=== PATIENT | female | born 1965 | race African-American/Black ===

== ENCOUNTER → 2020-05-10 | Outpatient (REF) | payer OTHER ==
[2020-05-10 13:17] LABS: BASO % 0.4 % (0.0-1.0); EOS % 0.6 % (0.0-3.0); HEMATOCRIT 44.5 % (36.0-47.0); HEMOGLOBIN 13.9 g/dl (12.0-15.5); MEAN CORPUSCULAR HEMOGLOBIN 25.7 pg (27.0-33.0); MEAN CORPUSCULAR HGB CONC 31.2 g/dl (32.0-36.5); MEAN CORPUSCULAR VOLUME 82.4 fl (80.0-96.0); MONO # 0.3 10^3/uL (0.0-0.8); MONO % 6.9 % (0.0-5.0); NEUTROPHILS # 2.5 10^3/uL (1.5-8.5); NEUTROPHILS % 50.7 % (36.0-66.0); PLATELET COUNT, AUTOMATED 277 10^3/uL (150-450)
[2020-05-10 13:28] LABS: ALBUMIN 3.8 GM/DL (3.2-5.2); ALT/SGPT 41 U/L (12-78); BILIRUBIN,TOTAL 0.4 MG/DL (0.2-1.0); BLOOD UREA NITROGEN 21 MG/DL (7-18); CALCIUM LEVEL 9.8 MG/DL (8.5-10.1); CARBON DIOXIDE LEVEL 32 MEQ/L (21-32); CHLORIDE LEVEL 104 MEQ/L (98-107); CHOLESTEROL LEVEL 187 MG/DL (<200); CHOLESTEROL RISK RATIO 2.077 (<5); CREATININE FOR GFR 1.07 MG/DL (0.55-1.30); GLOMERULAR FILTRATION RATE > 60.0 (>51); GLUCOSE, FASTING 142 MG/DL (70-100); HDL CHOLESTEROL 90 MG/DL (>40); LDL CHOLESTEROL 79 MG/DL (<100); NON-HDL-C 97 MG/DL; POTASSIUM SERUM 3.6 MEQ/L (3.5-5.1); SODIUM LEVEL 140 MEQ/L (136-145); TOTAL 25(OH) VITAMIN D 13.1 NG/ML (30.0-100.0); TOTAL PROTEIN 7.4 GM/DL (6.4-8.2); TRIGLYCERIDES LEVEL 88 MG/DL (<150)
[2020-05-10 13:38] LABS: HEMOGLOBIN A1c 6.9 %
[2020-05-10 14:49] LABS: MALB URINE SIEMENS 62.1 MG/L; MAU/CREAT RATIO 45.3 MCG/MG (0.0-30.0)
== END ==
LOC: M LAB REF 12:19
PROVIDERS: ATTEND Physician Assistant
DX: I51.7 Cardiomegaly (principal); E78.5 Hyperlipidemia, unspecified; Z86.15 Personal history of latent tuberculosis infection; Z68.33 Body mass index [BMI] 33.0-33.9, adult; E11.9 Type 2 diabetes mellitus without complications; I10 Essential (primary) hypertension; E66.09 Other obesity due to excess calories

== ENCOUNTER → 2020-05-13 | Outpatient (REF) | payer OTHER | LOC: M LAB REF 12:45 | PROVIDERS: ATTEND Physician Assistant | DX: I51.7 Cardiomegaly (principal); E78.5 Hyperlipidemia, unspecified; Z86.15 Personal history of latent tuberculosis infection; Z68.33 Body mass index [BMI] 33.0-33.9, adult; E66.09 Other obesity due to excess calories; E11.9 Type 2 diabetes mellitus without complications; I10 Essential (primary) hypertension ==

== ENCOUNTER → 2020-06-03 | Outpatient (REF) | payer OTHER, MEDICAID ==
[2020-06-03 16:56] LABS: BLOOD UREA NITROGEN 19 MG/DL (7-18); CARBON DIOXIDE LEVEL 34 MEQ/L (21-32); CHLORIDE LEVEL 101 MEQ/L (98-107); CREATININE FOR GFR 0.95 MG/DL (0.55-1.30); GLOMERULAR FILTRATION RATE > 60.0 (>51); GLUCOSE, FASTING 128 MG/DL (70-100); POTASSIUM SERUM 3.1 MEQ/L (3.5-5.1); SODIUM LEVEL 140 MEQ/L (136-145)
[2020-06-03 16:57] LABS: CALCIUM LEVEL 9.9 MG/DL (8.5-10.1)
== END ==
LOC: M LAB REF 16:01
PROVIDERS: ATTEND Physician Assistant
DX: I10 Essential (primary) hypertension (principal)

== ENCOUNTER → 2020-06-17 | Outpatient (REF) | payer OTHER, MEDICAID | LOC: M LAB REF 16:19 | PROVIDERS: ATTEND Physician Assistant | DX: E87.6 Hypokalemia (principal) ==

== ENCOUNTER → 2020-06-24 | Outpatient (REF) | payer OTHER, MEDICAID | LOC: M LAB REF 17:45 | PROVIDERS: ATTEND Nurse Practitioner Family | DX: N76.0 Acute vaginitis (principal) ==

== ENCOUNTER → 2020-07-16 | Outpatient (CLI) | payer OTHER, MEDICAID ==
[~2020-07-16] MED LIST: CETI-24 PO; CHLO125TA PO; D 50CAP2 PO
== END ==
LOC: M LABSMTC 11:19
PROVIDERS: ATTEND Anesthesiology
DX: Z01.812 Encounter for preprocedural laboratory examination (principal); Z20.828 Contact with and (suspected) exposure to other viral communicable diseases

== ENCOUNTER 2020-07-21 07:03 | Day surgery (SDC) | payer OTHER ==
[~2020-07-21] VITALS: Ht 157.5 cm; Wt 85.3 kg
[2020-07-21] MEDS ORDERED: LIDOCAINE 2% 100MG/5ML SDV (FOR ANES.) As Ordered ONE (07:57)
[2020-07-21] MEDS ORDERED: NS 1,000 ML IV ONE (08:00)
[2020-07-21] MEDS ORDERED: propofoL 200 MG/20 ML VIAL As Ordered ONE ×2 (08:27→08:28)
--- NOTE | 2020-07-21 08:39 | ROOR ---
Patient Name: Meena Vo Procedure Date: 07/21/2020 8:16 AM Date of : 1965 Age: 55 Room: [facility] Gender: Female Note Status: Finalized Procedure: Colonoscopy Indications: Screening for colorectal malignant neoplasm Providers: DO Helena Ko MD: MILIND Donovan Requesting Provider: Medicines: Propofol per Anesthesia Complications: No immediate complications. Procedure: Pre-Anesthesia Assessment: - Prior to the procedure, a History and Physical was performed, and patient medications and allergies were reviewed. The patient is competent. The risks and benefits of the procedure and the sedation options and risks were discussed with the patient. All questions were answered and informed consent was obtained. Patient identification and proposed procedure were verified by the physician, the nurse, the clinical documentation consultant and the pharmacy technician infusion in the endoscopy suite. Mental Status Examination: alert and oriented. Airway Examination: normal oropharyngeal airway and neck mobility. Respiratory Examination: clear to auscultation. CV Examination: normal. Prophylactic Antibiotics: The patient does not require prophylactic antibiotics. Prior Anticoagulants: The patient has taken no previous anticoagulant or antiplatelet agents. ASA Grade Assessment: II - A patient with mild systemic disease. After reviewing the risks and benefits, the patient was deemed in satisfactory condition to undergo the procedure. The anesthesia plan was to use monitored anesthesia care (MAC). Immediately prior to administration of medications, the patient was re-assessed for adequacy to receive sedatives. The heart rate, respiratory rate, oxygen saturations, blood pressure, adequacy of pulmonary ventilation, and response to care were monitored throughout the procedure. The physical status of the patient was re-assessed after the procedure. The Colonoscope was introduced through the anus and advanced to the terminal ileum, with identification of the appendiceal orifice and IC valve. The colonoscopy was performed without difficulty. The patient tolerated the procedure well. Findings: A few small-mouthed diverticula were found in the sigmoid colon and ascending colon. Non-bleeding internal hemorrhoids were found during retroflexion. The hemorrhoids were mild and Grade I (internal hemorrhoids that do not prolapse). The exam was otherwise without abnormality. Impression: - Diverticulosis in the sigmoid colon and in the ascending colon. - Non-bleeding internal hemorrhoids. - The examination was otherwise normal. - No specimens collected. Recommendation: - Patient has a contact number available for emergencies. The signs and symptoms of potential delayed complications were discussed with the patient. Return to normal activities tomorrow. Written discharge instructions were provided to the patient. - Repeat colonoscopy in 5-10 years for screening purposes. - Return to my office PRN. Procedure Code(s): --- Professional --- G0121, Colorectal cancer screening; colonoscopy on individual not meeting criteria for high risk Diagnosis Code(s): --- Professional --- Z12.11, Encounter for screening for malignant neoplasm of colon K64.0, First degree hemorrhoids K57.30, Diverticulosis of large intestine without perforation or abscess without bleeding CPT copyright 2019 [employer]. All rights reserved. The codes documented in this report are preliminary and upon computer equipment repairer review may be revised to meet current compliance requirements. Cliff Baptiste DO 07/21/2020 8:39:26 AM Electronically signed by Cliff Baptiste DO Number of Addenda: 0 Note Initiated On: 07/21/2020 8:16 AM Estimated Blood Loss: Estimated blood loss: none.
[2020-07-21 09:00] VITALS: BP 168/95
== END 2020-07-21 09:08 | disposition home or self-care (01) ==
LOC: M OPP 07:03
PROVIDERS: ATTEND Surgery
DX: Z12.11 Encounter for screening for malignant neoplasm of colon (principal); K57.30 Diverticulosis of large intestine without perforation or abscess without bleeding; K64.0 First degree hemorrhoids; Z79.899 Other long term (current) drug therapy

== ENCOUNTER 2020-11-30 18:16 | Emergency (ER) | payer MEDICAID, OTHER ==
[~2020-11-30] VITALS: Ht 157.5 cm; Wt 79.7 kg
[~2020-11-30 18:16] MED LIST changes: -AMLO1TAB25; -GLIP5TAB8 PO; -METF500T13 PO
[2020-11-30 18:17] VITALS: BP 141/92
[2020-11-30] MEDS ORDERED: AMLO1TAB25 (18:30)
[2020-11-30] MEDS ORDERED: NS 1,000 ML IV ONE ×2 (19:40→22:10)
[2020-11-30 20:26] LABS: VENOUS BASE EXCESS 6.6 (-2.0-2.0); VENOUS HCO3 32.8 MEQ/L (23.0-27.0); VENOUS O2 SATURATION 49.4 % (60.0-80.0); VENOUS PARTIAL PRESSURE CO2 52.1 mmHg (38.0-50.0); VENOUS PARTIAL PRESSURE O2 26.4 mmHg (30.0-50.0); VENOUS PH 7.417 UNITS (7.330-7.430); VENOUS STANDARD HCO3 28.9 MEQ/L; VENOUS TOTAL CO2 34.4 MEQ/L (24.0-28.0)
[2020-11-30 20:36] LABS: BASO % 0.4 % (0.0-1.0); EOS % 0.4 % (0.0-3.0); HEMOGLOBIN 15.8 g/dl (12.0-15.5); LYMPH % 38.9 % (24.0-44.0); MEAN CORPUSCULAR HEMOGLOBIN 25.4 pg (27.0-33.0); MEAN CORPUSCULAR HGB CONC 32.2 g/dl (32.0-36.5); MEAN CORPUSCULAR VOLUME 78.9 fl (80.0-96.0); MONO # 0.4 10^3/uL (0.0-0.8); MONO % 7.6 % (2.0-8.0); NEUTROPHILS # 2.6 10^3/uL (1.5-8.5); NEUTROPHILS % 52.5 % (36.0-66.0); PLATELET COUNT, AUTOMATED 339 10^3/uL (150-450); RED BLOOD COUNT 6.21 10^6/uL (4.00-5.40)
[2020-11-30 21:06] LABS: OSMOLALITY SERUM 293 MOSM/KG (275-295)
[2020-11-30 21:17] LABS: ACETONE/KETONE 3.24 MG/DL (<2.81); ALBUMIN 4.1 GM/DL (3.2-5.2); ALT/SGPT 43 U/L (12-78); BILIRUBIN,DIRECT 0.1 MG/DL (0.0-0.2); BILIRUBIN,TOTAL 0.4 MG/DL (0.2-1.0); BLOOD UREA NITROGEN 20 MG/DL (7-18); CALCIUM LEVEL 10.5 MG/DL (8.5-10.1); CARBON DIOXIDE LEVEL 33 MEQ/L (21-32); CHLORIDE LEVEL 91 MEQ/L (98-107); CREATININE FOR GFR 1.13 MG/DL (0.55-1.30); GLOMERULAR FILTRATION RATE > 60.0 (>51); GLUCOSE, FASTING 400 MG/DL (70-100); LIPASE 283 U/L (73-393); POTASSIUM SERUM 3.4 MEQ/L (3.5-5.1); SODIUM LEVEL 130 MEQ/L (136-145); TOTAL PROTEIN 7.8 GM/DL (6.4-8.2)
[2020-11-30 22:17] LABS: HEMOGLOBIN A1c > 14.0 %
[2020-12-01] MEDS ORDERED: METF500T13 PO (00:14)
[2020-12-01] MEDS ORDERED: GLIP5TAB8 PO (00:14)
[2020-12-01] MEDS ORDERED: glipiZIDE (GLUCOTROL) 5 MG TAB PO ONE (00:15)
[2020-12-01] MEDS ORDERED: metFORMIN (GLUCOPHAGE) 500MG TAB PO ONE (00:15)
--- NOTE | 2020-12-02 12:38 | ECGEPIP ---
[facility] - ED Test Date: 2020-11-30 Pat Name: NEFTALY LEON Department: Room: - Gender: Female Podiatry Assistant: er : 1965 Requested By: LUAN Marino Order Number: [id number] Reading MD: Belinda Leyva Measurements Intervals Severance Rate: 75 P: 48 MS: 176 QRS: 7 QRSD: 76 T: 103 QT: 404 QTc: 451 Interpretive Statements Normal sinus rhythm Possible Left atrial enlargement Inferior infarct , age undetermined Cannot rule out Anterior infarct , age undetermined ST & T wave abnormality, consider ischemia no prior Electronically Signed on 12-02-2020 12:37:40 EDT by Belinda Leyva
== END 2020-12-01 00:32 | disposition home or self-care (01) ==
LOC: M ED 18:16
DX: E11.65 Type 2 diabetes mellitus with hyperglycemia (principal); Z79.899 Other long term (current) drug therapy

== ENCOUNTER → 2020-11-30 | Outpatient (CLI) | payer OTHER ==
[~2020-11-30] MED LIST changes: +AMLO1TAB25; +GLIP5TAB8 PO; +METF500T13 PO
[2020-11-30 16:24] LABS: BASO % 0.2 % (0.0-1.0); EOS % 0.2 % (0.0-3.0); HEMATOCRIT 48.5 % (36.0-47.0); HEMOGLOBIN 15.5 g/dl (12.0-15.5); LYMPH # 1.2 10^3/uL (1.5-5.0); LYMPH % 28.7 % (24.0-44.0); MEAN CORPUSCULAR HEMOGLOBIN 25.7 pg (27.0-33.0); MEAN CORPUSCULAR VOLUME 80.3 fl (80.0-96.0); MONO # 0.4 10^3/uL (0.0-0.8); MONO % 8.2 % (2.0-8.0); NEUTROPHILS # 2.7 10^3/uL (1.5-8.5); NEUTROPHILS % 62.5 % (36.0-66.0); PLATELET COUNT, AUTOMATED 320 10^3/uL (150-450); RED BLOOD COUNT 6.04 10^6/uL (4.00-5.40); WHITE BLOOD COUNT 4.3 10^3/uL (4.0-10.0)
[2020-11-30 16:44] LABS: BACTERIA, URINE AUTO NEGATIVE (NEGATIVE); RBC, URINE AUTO 5 /HPF (0-3); SQUAMOUS EPITHELIAL CELL UR AU 2 /HPF (0-6); WBC, URINE AUTO 1 /HPF (0-3)
[2020-11-30 16:44] LABS: BILIRUBIN,TOTAL 0.4 MG/DL (0.2-1.0); CALCIUM LEVEL 10.1 MG/DL (8.5-10.1); CREATININE FOR GFR 1.51 MG/DL (0.55-1.30); GLOMERULAR FILTRATION RATE 45.8 (>51); POTASSIUM SERUM 3.5 MEQ/L (3.5-5.1); TOTAL PROTEIN 7.5 GM/DL (6.4-8.2)
[2020-11-30 17:29] LABS: HEMOGLOBIN A1c 13.9 %
== END ==
LOC: M WUC 11:43
PROVIDERS: ATTEND Nurse Practitioner Family
DX: E11.65 Type 2 diabetes mellitus with hyperglycemia (principal)

== ENCOUNTER → 2021-03-02 | Outpatient (CLI) | payer MEDICAID, OTHER ==
[~2021-03-02] MED LIST changes: +AMLO1TAB25; +GLIP5TAB8 PO; +METF500T13 PO
[2021-03-02 12:19] LABS: HEMATOCRIT 45.3 % (36.0-47.0); HEMOGLOBIN 14.2 g/dl (12.0-15.5); MEAN CORPUSCULAR HEMOGLOBIN 25.6 pg (27.0-33.0); MEAN CORPUSCULAR HGB CONC 31.3 g/dl (32.0-36.5); MEAN CORPUSCULAR VOLUME 81.6 fl (80.0-96.0); PLATELET COUNT, AUTOMATED 380 10^3/uL (150-450); RED BLOOD COUNT 5.55 10^6/uL (4.00-5.40); WHITE BLOOD COUNT 5.7 10^3/uL (4.0-10.0)
[2021-03-02 12:35] LABS: INR 0.86; PROTHROMBIN TIME 11.9 SECONDS (12.5-14.3)
[2021-03-02 12:36] LABS: PARTIAL THROMBOPLASTIN TIME 35.4 SECONDS (24.2-38.5)
[2021-03-02 12:45] LABS: ERYTHROCYTE SEDIMENTATION RATE 15 mm/hr (0-30)
[2021-03-02 12:52] LABS: ALBUMIN 4.1 GM/DL (3.2-5.2); ALT/SGPT 37 U/L (12-78); BILIRUBIN,TOTAL 0.4 MG/DL (0.2-1.0); BLOOD UREA NITROGEN 19 MG/DL (7-18); CALCIUM LEVEL 9.8 MG/DL (8.5-10.1); CARBON DIOXIDE LEVEL 34 MEQ/L (21-32); CHLORIDE LEVEL 103 MEQ/L (98-107); CHOLESTEROL LEVEL 336 MG/DL (<200); CHOLESTEROL RISK RATIO 3.574 (<5); GLOMERULAR FILTRATION RATE > 60.0 (>51); GLUCOSE, FASTING 93 MG/DL (70-100); HDL CHOLESTEROL 94 MG/DL (>40); LDL CHOLESTEROL 215 MG/DL (<100); NON-HDL-C 242 MG/DL; POTASSIUM SERUM 3.6 MEQ/L (3.5-5.1); SODIUM LEVEL 141 MEQ/L (136-145); TOTAL PROTEIN 7.8 GM/DL (6.4-8.2); TRIGLYCERIDES LEVEL 133 MG/DL (<150)
[2021-03-02 13:23] LABS: HEMOGLOBIN A1c 7.4 %; THYROXINE (T4) 11.4 UG/DL (4.5-12.0)
[2021-03-02 13:33] LABS: TOTAL T3 118.2 NG/DL (60.0-181.0)
== END ==
LOC: M LAB 10:20
PROVIDERS: ATTEND Ophthalmology
DX: Z01.818 Encounter for other preprocedural examination (principal); I10 Essential (primary) hypertension; Z79.899 Other long term (current) drug therapy; Z86.73 Personal history of transient ischemic attack (TIA), and cerebral infarction without residual deficits

== ENCOUNTER → 2021-05-06 | Outpatient (REF) | payer OTHER ==
[2021-05-06 23:31] LABS: GC DNA AMPLIFICATION NEGATIVE (NEGATIVE)
== END ==
LOC: M WUC 20:16
PROVIDERS: ATTEND Physician Assistant
DX: Z11.3 Encounter for screening for infections with a predominantly sexual mode of transmission (principal); N77.1 Vaginitis, vulvitis and vulvovaginitis in diseases classified elsewhere

== ENCOUNTER → 2022-08-10 | Outpatient (REF) | payer OTHER | LOC: M LAB REF 09:32 | PROVIDERS: ATTEND Student in an Organized Health Care Education/Training Program | DX: R30.0 Dysuria (principal) ==

== ENCOUNTER → 2022-08-17 | Outpatient (CLI) | payer OTHER, SELFPAY | LOC: M WHC 12:04 | PROVIDERS: ATTEND Physician Assistant | DX: Z12.31 Encounter for screening mammogram for malignant neoplasm of breast (principal) ==

== ENCOUNTER 2022-10-22 19:16 | Emergency (ER) | payer OTHER ==
[~2022-10-22] VITALS: Ht 157.5 cm; Wt 83.1 kg
[2022-10-22] MEDS ORDERED: ACET500T15 PO (19:26)
[2022-10-22] MEDS ORDERED: KETOROLAC 60MG 2ML VIAL IM ONE (22:10)
[2022-10-22] MEDS ORDERED: NORCO 5/325MG TABLET (HOME DOSE PACK) PO ONE (23:15)
[2022-10-22] MEDS ORDERED: HYDR-3713 PO (23:30)
[2022-10-22] MEDS ORDERED: NAPR-837 PO (23:30)
[2022-10-22 23:56] VITALS: BP 124/81
== END 2022-10-22 23:55 | disposition home or self-care (01) ==
LOC: M ED 19:16
DX: S30.0XXA Contusion of lower back and pelvis, initial encounter (principal); W19.XXXA Unspecified fall, initial encounter; I10 Essential (primary) hypertension; Y92.009 Unspecified place in unspecified non-institutional (private) residence as the place of occurrence of the external cause; Z79.4 Long term (current) use of insulin; Z79.1 Long term (current) use of non-steroidal anti-inflammatories (NSAID); Z79.84 Long term (current) use of oral hypoglycemic drugs; Z79.899 Other long term (current) drug therapy
CPT/HCPCS: 72131; 72192; 72220; 96372; 99283; J1885

== ENCOUNTER → 2022-10-24 | Outpatient (REF) | payer OTHER ==
[~2022-10-24] MED LIST changes: +ACET500T15 PO; +HYDR-3713 PO; +NAPR-837 PO
[2022-10-24 17:10] LABS: HEMATOCRIT 48.6 % (36.0-47.0); MEAN CORPUSCULAR HGB CONC 30.9 g/dl (32.0-36.5); PLATELET COUNT, AUTOMATED 345 10^3/uL (150-450); WHITE BLOOD COUNT 5.7 10^3/uL (4.0-10.0)
[2022-10-24 17:14] LABS: CREATININE, URINE 95.3 MG/DL; MAU/CREAT RATIO 27.2 MCG/MG (0.0-30.0)
[2022-10-24 17:43] LABS: ALBUMIN 3.8 G/DL (3.2-5.2); ALKALINE PHOSPHATASE 104 U/L (46-116); ALT/SGPT 24 U/L (7.0-40); AST/SGOT 20 U/L (<34); BILIRUBIN,TOTAL 0.7 MG/DL (0.3-1.2); BLOOD UREA NITROGEN 18 MG/DL (9-23); CALCIUM LEVEL 9.9 MG/DL (8.5-10.1); CARBON DIOXIDE LEVEL 29 MMOL/L (20-31); CHLORIDE LEVEL 102 MMOL/L (98-107); CHOLESTEROL LEVEL 202 MG/DL (<200); CHOLESTEROL RISK RATIO 2.33 (<5); CREATININE FOR GFR 0.78 MG/DL (0.55-1.30); GLOMERULAR FILTRATION RATE > 60.0 (>51); GLUCOSE, FASTING 133 MG/DL (60-100); HDL CHOLESTEROL 86.6 MG/DL (>40); HEMOGLOBIN A1c 9.1 % (4.0-6.0); LDL CHOLESTEROL 87.4 MG/DL (<100); NON-HDL-C 115.4 MG/DL; POTASSIUM SERUM 4.1 MMOL/L (3.5-5.1); SODIUM LEVEL 139 MMOL/L (136-145); TOTAL PROTEIN 6.8 G/DL (5.7-8.2); TRIGLYCERIDES LEVEL 140 MG/DL (<150)
== END ==
LOC: M LAB REF 16:25
PROVIDERS: ATTEND Physician Assistant
DX: E11.9 Type 2 diabetes mellitus without complications (principal)

== ENCOUNTER → 2022-12-01 | Outpatient (REF) | payer OTHER | LOC: M LAB REF 16:33 | PROVIDERS: ATTEND Physician Assistant | DX: L29.3 Anogenital pruritus, unspecified (principal) ==

== ENCOUNTER → 2022-12-04 | Outpatient (CLI) | payer OTHER | LOC: M SOG 07:55 | PROVIDERS: ATTEND Orthopaedic Surgery | DX: S32.2XXA Fracture of coccyx, initial encounter for closed fracture (principal); X58.XXXA Exposure to other specified factors, initial encounter; Y92.89 Other specified places as the place of occurrence of the external cause; Y93.89 Activity, other specified; Y99.8 Other external cause status ==

== ENCOUNTER → 2023-02-02 | Outpatient (REF) | payer OTHER ==
[2023-02-02 17:47] LABS: ALBUMIN 4.1 G/DL (3.2-5.2); ALKALINE PHOSPHATASE 115 U/L (46-116); ALT/SGPT 40 U/L (7.0-40); AST/SGOT < 8 U/L (<34); BILIRUBIN,TOTAL 0.7 MG/DL (0.3-1.2); BLOOD UREA NITROGEN 12 MG/DL (9-23); CALCIUM LEVEL 9.8 MG/DL (8.5-10.1); CARBON DIOXIDE LEVEL 29 MMOL/L (20-31); CHLORIDE LEVEL 104 MMOL/L (98-107); CHOLESTEROL LEVEL 191 MG/DL (<200); CHOLESTEROL RISK RATIO 2.44 (<5); CREATININE FOR GFR 0.74 MG/DL (0.55-1.30); GLOMERULAR FILTRATION RATE > 60.0 (>51); GLUCOSE, FASTING 190 MG/DL (60-100); LDL CHOLESTEROL 81.4 MG/DL (<100); SODIUM LEVEL 141 MMOL/L (136-145); TOTAL PROTEIN 7.1 G/DL (5.7-8.2); TRIGLYCERIDES LEVEL 158 MG/DL (<150)
[2023-02-02 19:03] LABS: HEMOGLOBIN A1c 9.8 % (4.0-6.0)
== END ==
LOC: M LAB REF 16:31
PROVIDERS: ATTEND Physician Assistant
DX: E11.9 Type 2 diabetes mellitus without complications (principal); E78.5 Hyperlipidemia, unspecified

== ENCOUNTER → 2023-04-19 | Outpatient (REF) | payer OTHER | LOC: M SFHCWAGY 13:32 | PROVIDERS: ATTEND Nurse Practitioner Family | DX: N73.9 Female pelvic inflammatory disease, unspecified (principal) ==

== ENCOUNTER → 2023-04-19 | Outpatient (REF) | payer OTHER ==
[2023-04-19 13:04] LABS: APPEARANCE, URINE HAZY (CLEAR); BACTERIA, URINE AUTO NEGATIVE (NEGATIVE); BILIRUBIN, URINE AUTO NEGATIVE (NEGATIVE); BLOOD, URINE BLOOD NEGATIVE (NEGATIVE); COLOR, URINE YELLOW (YELLOW); GLUCOSE, URINE (UA) AUTO 3+ mg/dL (NEGATIVE); KETONE, URINE AUTO NEGATIVE (NEGATIVE); LEUKOCYTE ESTERASE, URINE AUTO 3+ (NEGATIVE); NITRITE, URINE AUTO NEGATIVE (NEGATIVE); PROTEIN, URINE AUTO NEGATIVE (NEGATIVE); RBC, URINE AUTO 1 /HPF (0-3); SPECIFIC GRAVITY URINE AUTO 1.023 (1.002-1.035); SQUAMOUS EPITHELIAL CELL UR AU 17 /HPF (0-6); UROBILINOGEN, URINE AUTO 0.2 mg/dL (0.0-2.0); WBC, URINE AUTO 6 /HPF (0-3)
[2023-04-19 14:51] LABS: GC DNA AMPLIFICATION NEGATIVE (NEGATIVE)
== END ==
LOC: M LAB REF 11:32
PROVIDERS: ATTEND Nurse Practitioner Family
DX: B37.31 Acute candidiasis of vulva and vagina (principal)

== ENCOUNTER → 2023-10-15 | Outpatient (REF) | payer OTHER ==
[~2023-10-15] MED LIST changes: +GLIP5TAB17 PO; -GLIP5TAB8 PO
[2023-10-15 17:31] LABS: CREATININE, URINE 206.2 MG/DL; MAU/CREAT RATIO 133.8 MCG/MG (0.0-30.0)
[2023-10-15 18:49] LABS: HEMATOCRIT 44.2 % (36.0-47.0); HEMOGLOBIN 14.5 g/dl (12.0-15.5); MEAN CORPUSCULAR HEMOGLOBIN 27.2 pg (27.0-33.0); MEAN CORPUSCULAR HGB CONC 32.8 g/dl (32.0-36.5); MEAN CORPUSCULAR VOLUME 82.9 fl (80.0-96.0); PLATELET COUNT, AUTOMATED 279 10^3/uL (150-450); RED BLOOD COUNT 5.33 10^6/uL (4.00-5.40); WHITE BLOOD COUNT 5.7 10^3/uL (4.0-10.0)
[2023-10-15 19:20] LABS: ALBUMIN 3.7 G/DL (3.2-5.2); ALKALINE PHOSPHATASE 101 U/L (46-116); ALT/SGPT 22 U/L (7.0-40); AST/SGOT 11 U/L (<34); BILIRUBIN,TOTAL 0.6 MG/DL (0.3-1.2); BLOOD UREA NITROGEN 14 MG/DL (9-23); CALCIUM LEVEL 9.2 MG/DL (8.3-10.6); CARBON DIOXIDE LEVEL 26 MMOL/L (20-31); CHLORIDE LEVEL 102 MMOL/L (98-107); CHOLESTEROL LEVEL 322 MG/DL (<200); CHOLESTEROL RISK RATIO 3.86 (<5); CREATININE FOR GFR 0.58 MG/DL (0.55-1.30); GLOMERULAR FILTRATION RATE > 60.0 (>45); GLUCOSE, FASTING 316 MG/DL (74-106); HDL CHOLESTEROL 83.4 MG/DL (>40); LDL CHOLESTEROL 218.6 MG/DL (<100); NON-HDL-C 238.6 MG/DL; POTASSIUM SERUM 3.8 MMOL/L (3.5-5.1); SODIUM LEVEL 136 MMOL/L (136-145); TRIGLYCERIDES LEVEL 100 MG/DL (<150)
[2023-10-15 20:35] LABS: HEMOGLOBIN A1c 12.5 % (4.0-6.0)
== END ==
LOC: M LAB REF 16:24
PROVIDERS: ATTEND Physician Assistant
DX: R30.0 Dysuria (principal); E11.65 Type 2 diabetes mellitus with hyperglycemia

== ENCOUNTER → 2024-03-06 | Outpatient (CLI) | payer OTHER | LOC: M WHC 09:27 | PROVIDERS: ATTEND Nurse Practitioner Family | DX: Z12.31 Encounter for screening mammogram for malignant neoplasm of breast (principal); Z53.9 Procedure and treatment not carried out, unspecified reason ==

== ENCOUNTER 2024-03-09 16:00 | Emergency (ER) | payer OTHER ==
[2024-03-09] MEDS ORDERED: ISOVUE-370 76% 100ML VIAL As Ordered ONE (16:39)
[2024-03-09 16:51] LABS: BASO % 0.5 % (0.0-1.0); EOS % 0.4 % (0.0-3.0); HEMATOCRIT 44.8 % (36.0-47.0); HEMOGLOBIN 14.9 g/dl (12.0-15.5); LYMPH # 1.7 10^3/uL (1.5-5.0); LYMPH % 30.5 % (24.0-44.0); MEAN CORPUSCULAR HEMOGLOBIN 27.4 pg (27.0-33.0); MEAN CORPUSCULAR HGB CONC 33.3 g/dl (32.0-36.5); MEAN CORPUSCULAR VOLUME 82.5 fl (80.0-96.0); MONO # 0.4 10^3/uL (0.0-0.8); MONO % 6.9 % (2.0-8.0); NEUTROPHILS # 3.4 10^3/uL (1.5-8.5); NEUTROPHILS % 61.5 % (36.0-66.0); PLATELET COUNT, AUTOMATED 357 10^3/uL (150-450); RED BLOOD COUNT 5.43 10^6/uL (4.00-5.40); WHITE BLOOD COUNT 5.5 10^3/uL (4.0-10.0)
[2024-03-09 16:55] VITALS: BP 189/92
[2024-03-09] MEDS: LORazepam 2 MG/ML 1ML VIAL IV STA (16:55)
[2024-03-09] MEDS: FUROSEMIDE 40MG/4ML VIAL IV ONE (16:55)
[2024-03-09 19:34] VITALS: BP 121/79; TEMP 98.2; O2SAT 95
== END 2024-03-09 19:38 | disposition home or self-care (01) ==
LOC: EDBD 16:00 → M ED 16:00
DX: F43.81 Prolonged grief disorder (principal); I25.2 Old myocardial infarction; E11.9 Type 2 diabetes mellitus without complications; E78.5 Hyperlipidemia, unspecified; I10 Essential (primary) hypertension; Z79.1 Long term (current) use of non-steroidal anti-inflammatories (NSAID); Z79.84 Long term (current) use of oral hypoglycemic drugs; Z79.899 Other long term (current) drug therapy
CPT/HCPCS: 70450; 70496; 70498; 71045; 80047; 85025; 93005; 93041; 94760; 96374; 99285; J1940; J2060; Q9967

== ENCOUNTER → 2024-07-03 | Outpatient (REF) | payer OTHER ==
[2024-07-03 19:51] LABS: BLOOD UREA NITROGEN 19 MG/DL (9-23); CALCIUM LEVEL 10.6 MG/DL (8.3-10.6); CARBON DIOXIDE LEVEL 30 MMOL/L (20-31); CHLORIDE LEVEL 101 MMOL/L (98-107); CREATININE FOR GFR 0.69 MG/DL (0.55-1.30); GLOMERULAR FILTRATION RATE > 60.0 (>45); GLUCOSE, FASTING 365 MG/DL (74-106); POTASSIUM SERUM 4.5 MMOL/L (3.5-5.1); SODIUM LEVEL 138 MMOL/L (136-145)
== END ==
LOC: M LABWUC 16:30
PROVIDERS: ATTEND Internal Medicine Cardiovascular Disease
DX: I10 Essential (primary) hypertension (principal)

== ENCOUNTER → 2024-10-22 | Outpatient (CLI) | payer OTHER | LOC: M WUC 12:39 | PROVIDERS: ATTEND Physician Assistant | DX: M19.011 Primary osteoarthritis, right shoulder (principal) ==

== ENCOUNTER → 2024-11-12 | Outpatient (REF) | payer OTHER ==
[2024-11-12 21:33] LABS: Trichomonas vaginalis (AMP) NOT DETECTED (NEGATIVE)
[2024-11-12 21:57] LABS: GC DNA AMPLIFICATION NEGATIVE (NEGATIVE)
== END ==
LOC: M WUC 19:34
PROVIDERS: ATTEND Physician Assistant
DX: N76.0 Acute vaginitis (principal)